=== PATIENT | female | born 2000 | race African-American/Black ===

== ENCOUNTER 2020-04-08 09:45 | Emergency (ER) | payer BC, SELFPAY ==
[2020-04-08 09:52] VITALS: BP 117/63; PULSE 85; RESP 16; TEMP 36.8; O2SAT 100
--- NOTE | 2020-04-08 09:57 | ED.URI ---
HPI - URI/Sore Throat General Chief Complaint: Upper Respiratory Infection Stated Complaint: sore throat Time Seen by Provider: 04/08/20 10:05 Source: patient and RN notes reviewed History of Present Illness HPI Narrative: Patient is a 19-year-old female who presents the urgent care with complaints of increased postnasal drainage and sore throat. Patient states that it started approximately 3 days ago. Patient states that she was diagnosed with strep on March 23 and taken amoxicillin until April 02. Patient states that she felt better for a few days until the increased mucus started. Patient states that last year she had strep 5 times and this year this would be diagnosis #2. Patient denies any fever, chills, nausea, vomiting. Patient has not taken anything for her symptoms with the exception of Flonase. No other acute complaints. No acute distress noted. Patient read the plan of care. Related Data Home Medications Medication Instructions Recorded Confirmed gabapentin 100 mg PO TID PRN 04/08/20 04/08/20 medroxyprogesterone [Depo-Provera] 150 mg IM [id number] 04/08/20 04/08/20 Allergies Allergy/AdvReac Type Severity Reaction Status Date / Time banana Allergy Unknown stomachache Verified 04/08/20 10:05 shrimp Allergy Unknown HIVES Verified 04/08/20 10:05 Review of Systems Review of Systems: Narrative: CONSTITUTIONAL: Denies fever, chills, or sweats. EYES: Denies visual changes, redness, or discharge. ENT reports of sore throat and increased postnasal drainage CARDIOVASCULAR: Denies chest pain, palpitations, or edema. RESPIRATORY: Denies cough or dyspnea. GASTROINTESTINAL: Denies abdominal pain, nausea, vomiting, or diarrhea. GENITOURINARY: Denies dysuria or hematuria. SKIN: Denies rash or itching. MUSCULOSKELETAL: Denies back pain, joint pain, or myalgia. NEUROLOGIC: Denies headache, numbness, or weakness. All other systems reviewed are negative, except as documented in HPI. PMFSH Comments At the time of my signature, I reviewed and agree with the nursing past medical, surgical, social, and family history. There is no relevant family history pertinent to the patient complaint. Exam Narrative: Exam Narrative: GENERAL: This is a well-nourished, well-developed patient, in no apparent distress. HEAD: normocephalic, atraumatic. EYES: PERRL. Sclera clear/white. Vision is grossly intact. EARS: External ears normal, auditory canals clear and without drainage, TMs normal without perforation. Hearing grossly intact. NOSE: External nose normal with no obvious nasal discharge, nares without redness, no rhinorrhea. THROAT: Mucous membranes moist, mild erythema noted posterior oropharynx with moderate postnasal drainage without exudate or ulceration NECK: Neck supple CARDIOVASCULAR: Regular rate and rhythm without murmurs, gallops, or rubs. RESPIRATORY: Clear to auscultation. Breath sounds equal bilaterally. No wheezes, rales, or rhonchi. SKIN: warm, intact with no suspicious lesions or rash, good texture and turgor. NEURO: awake, alert, and oriented to person, place and time. There were no obvious focal neurologic abnormalities. EXTREMITIES: No clubbing, cyanosis, or edema. Course Vital Signs Vital signs: Vital Signs Temperature 98.3 F 04/08/20 09:52 Pulse Rate 85 04/08/20 09:52 Respiratory Rate 16 04/08/20 09:52 Blood Pressure 117/63 04/08/20 09:52 Pulse Oximetry 100 04/08/20 09:52 Temperature 98.3 F 04/08/20 09:52 Pulse Rate 85 04/08/20 09:52 Respiratory Rate 16 04/08/20 09:52 Blood Pressure 117/63 04/08/20 09:52 Pulse Oximetry 100 04/08/20 09:52 Reviewed MDM - URI/Sore Throat MDM Narrative Medical decision making narrative: Reviewed lab results with the patient. She is aware that strep swab was positive. Advised patient to continue using Flonase as needed for postnasal drainage. Use Tylenol/ibuprofen as needed for fever pain. Increase fluids and rest. Complete oral antibiotic regime
== END 2020-04-08 10:20 | disposition home or self-care (01) ==
PROVIDERS: Emergency Provider Nurse Practitioner Family
DX: J02.0 Streptococcal pharyngitis (principal)
CPT/HCPCS: 87880; 99213; G0463

== ENCOUNTER 2020-09-05 10:44 | Emergency (ER) | payer BC, SELFPAY ==
--- NOTE | 2020-09-05 10:53 | ED.GENADULT ---
HPI - General Adult General Chief complaint: Upper Respiratory Infection Stated complaint: Sore Throat Time Seen by Provider: 09/05/20 10:53 Source: patient Mode of arrival: ambulatory Limitations: no limitations History of Present Illness HPI narrative: 20-year-old female patient presents to the [facility] with complaints of a sore throat that started last night. Patient states she has had strep 3 times already this year. Patient denies any fevers, body aches or chills. Denies any ear pain. Denies any runny nose, stuffy nose. Denies any coughing, chest pain or shortness of breath. Patient denies or breast-feeding. Related Data Home Medications Medication Instructions Recorded Confirmed doxycycline hyclate 100 mg PO BID 09/05/20 09/05/20 Allergies Allergy/AdvReac Type Severity Reaction Status Date / Time banana Allergy Unknown stomachache Verified 09/05/20 11:05 shrimp Allergy Unknown HIVES Verified 09/05/20 11:05 Review of Systems Review of Systems: Narrative: CONSTITUTIONAL: Denies fever, chills, or sweats. EYES: Denies visual changes, redness, or discharge. ENT: Denies rhinorrhea, congestion, positive sore throat, denies otalgia. CARDIOVASCULAR: Denies chest pain, palpitations, or edema. RESPIRATORY: Denies cough or dyspnea. GASTROINTESTINAL: Denies abdominal pain, nausea, vomiting, or diarrhea. GENITOURINARY: Denies dysuria or hematuria. SKIN: Denies rash or itching. MUSCULOSKELETAL: Denies back pain, joint pain, or myalgia. NEUROLOGIC: Denies headache, numbness, or weakness. PSYCHIATRIC: Denies anxiety or depression. PMFSH Comments At the time of my signature I agree with nursing past medical history, surgical, social, and family history. There is no relevant family history pertinent to the presenting complaint. Exam Narrative: Exam Narrative: GENERAL: Well-appearing, well-nourished, and in no acute distress. HEAD: Normocephalic, atraumatic. EYES: PERRLA and EOMI. ENT: Nares clear, no rhinorrhea or epistaxis. Mucous membranes moist. Posterior pharynx with some erythema 1+ tonsil enlargement, no exudates or lesions present. Bilateral TMs are clear no erythema or foreign bodies in the canal. NECK: Supple. No lymphadenopathy CHEST: Clear to auscultation. No respiratory distress. HEART: Regular rate and rhythm. No murmur heard. Normal peripheral pulses. ABDOMEN: Soft, nontender, nondistended, normal active bowel sounds. EXTREMITIES: Normal range of motion. No edema. SKIN: Warm, dry, no rash. NEURO: No focal deficits. Alert and oriented x3. Course Reevaluation(s) Reevaluation #1: Reevaluated patient after strep test had resulted. Notified her that her strep test today is negative however we will send the swab off to the lab for culture and if the culture does come back positive in the next day or 2 then we will call her and place her on antibiotics at that time. Discussed with her that I will not prescribe antibiotics today but rather suggest Tylenol, ibuprofen, warm salt water gargles for her symptoms at this time. Patient is requesting Covid test. Discussed with patient I will go ahead and order her Covid test however since her symptoms just started yesterday I do recommend waiting about 5 days and therefore I will go ahead and just predate her test and she should not be tested before September 08. Patient verbalized understanding of this at this time. Date: 09/05/20 Time: 11:23 Vital Signs Vital signs: Vital Signs Temperature 36.9 C 09/05/20 10:58 Pulse Rate 118 H 09/05/20 10:58 Respiratory Rate 16 09/05/20 10:58 Blood Pressure 139/76 09/05/20 10:58 Pulse Oximetry 100 09/05/20 10:58 Temperature 36.9 C 09/05/20 10:58 Pulse Rate 118 H 09/05/20 10:58 Respiratory Rate 16 09/05/20 10:58 Blood Pressure 139/76 09/05/20 10:58 Pulse Oximetry 100 09/05/20 10:58 Vital signs reviewed. Medical Decision Making Differential Diagnosis Differential Diagnosis: Differential
[2020-09-05 10:58] VITALS: BP 139/76; PULSE 118; RESP 16; TEMP 36.9; O2SAT 100
== END 2020-09-05 11:26 | disposition home or self-care (01) ==
PROVIDERS: Emergency Provider Nurse Practitioner Family
DX: J02.9 Acute pharyngitis, unspecified (principal); Z20.828 Contact with and (suspected) exposure to other viral communicable diseases
CPT/HCPCS: 87081; 87880; 99213; G0463